=== PATIENT | female | born 1935 | race Caucasian/White ===

== ENCOUNTER 2016-09-10 20:16 | Inpatient (IN) | payer OTHER ==
--- NOTE | ~2016-09-10 | CN ---
Consultation Report [facility] [address] [place]. [address] NAME: LEONID SINCLAIR : 34 STATUS : ADM Estefany PAT#: [id number] AGE: 81 ADM/REG DATE : 09/11/16 MR#: [id number] REPORT SERV DATE: 09/11/16 DICTATED BY: QUETA SANCHEZ DATE: 09/11/16 REPORT STATUS : Draft TRANSCRIBED BY: MODL DATE: 09/11/16 GI CONSULTATION DATE OF CONSULTATION: 09/11/2016 REASON FOR CONSULTATION: Evaluation and management of melena, acute blood loss anemia. HISTORY OF PRESENT ILLNESS: Ms. Leonid Sinclair is a very pleasant, 81-year-old female patient, known to Dr. Ralph Reyes in the outpatient setting, who presents to [facility] on 09/11/2016 with a chief complaint of history of black stools, weakness, shortness of breath, evidence for acute blood loss anemia. The patient states that, she has not been feeling well roughly for the last month, weakness, fatigue, exertional shortness of breath. She states around two weeks ago, she had loose black stools that she attributed to magnesium intake. She states, her magnesium tablets are dark in color and stated that she thought that she over did it with them. She stopped her magnesium and her black stools resolved. She states however that, she had no desire to get up, complete her activities of daily living. She was sleeping most of the day. She had the exertional shortness of breath. She went to see her primary care physician, who obtained labs, which revealed a very low hemoglobin and she was prompted to come to the emergency room for further evaluation. She has a history of atrial fib, cardiomyopathy with a pacemaker being on a regimen of Xarelto. She states that her last dose of Xarelto was on 09/09/2016 in the evening hours. She has not seen any bright red blood per rectum. She has not had any nausea or vomiting. She has had a decreased appetite, but no dysphagia, odynophagia, reflux, or indigestion. No abdominal pain voiced. She was checked in the emergency room by Stool Hemoccult, which was reported as negative. Her hemoglobin on admission was 6.8. She was typed and crossed and given two units packed red blood cells, which improved to 8.2. I have seen the patient, discussed with her. We will take her for upper endoscopy today with Dr. Muñoz. Risks, benefits, alternatives, and complications were detailed for her to include, but not limited to risk of bleeding, perforation, infection, reaction to medication, as well as cardiac and pulmonary side effects. She had an EGD with Dr. Brooks, 07/01/2015, when the PEG tube was placed secondary to oropharyngeal dysphagia. She had a normal esophagus. She had some erythema in the gastric body, then he did biopsy with a normal duodenal bulb, second part of the duodenum. She has subsequently had her PEG tube removed and has been doing well, eating on her own since that point in time. When she had the EGD, the biopsies showed H pylori positivity, fundic mucosa with mild chronic active gastritis. It should be noted that the patient was treated in the outpatient setting for her H pylori. PAST MEDICAL HISTORY: Positive for atrial fibrillation, asthma, SVT, hypertension, AV node ablation, pacemaker placement, postoperative hypoxia with intubation, PEG tube secondary to oropharyngeal dysphagia, pleural effusions. FAMILY HISTORY: Noncontributory from a GI standpoint. Consultation Report [address] [address] NAME: LEONID SINCLAIR : 34 STATUS : ADM Estefany PAT#: [id number] AGE: 81 ADM/REG DATE : 09/11/16 MR#: [id number] REPORT SERV DATE: 09/11/16 DICTATED BY: QUETA SANCHEZ DATE: 09/11/16 REPORT STATUS : Draft TRANSCRIBED BY: NITO DATE: 09/11/16 SOCIAL HISTORY: She lives independently. Does not use tobacco or illicit drugs. Occasional EtOH. ALLERGIES: LISTED TO SOTALOL, FLECAINIDE, CARTIA, AND MULTAQ. HOME MEDICATIONS: Vitamin B, Flovent, Proventil, multivitamin, vitamin E, fish oil, Xarelto, muscle relaxer, and ropinirole. REVIEW OF SYSTEMS: A 10-point review of systems was obtained, pertinent positives addressed in the history of present illness. PERTINENT LABORATORY DATA: Sodium 141, potassium 4.2, BUN is 30, creatinine is 1.55. White count is 6.3, hemoglobin 8.2, hematocrit 25.4, hemoglobin in 06/2015 was 13.2, Hemoccult negative in the emergency room. PHYSICAL EXAMINATION: VITAL SIGNS: Temperature is 97.0, pulse 80, respirations 18, blood pressure 138/66. NEURO: Reveals an alert, female, resting in bed with no focal deficits. GENERAL: Cooperative with no apparent distress. She is awake. She is alert. She is oriented x3. HEAD, EARS, EYES, NOSE, AND THROAT: Anicteric. Pupils equal, round, reactive to light and accommodation. Normocephalic and atraumatic. NECK: No JVD. No palpable nodes. Supple. LUNGS: Decreased throughout with slight left upper lobe expiratory wheeze. Normal respiratory effort exhibited. Equal expansion. CARDIOVASCULAR SYSTEM: Regular rate and rhythm. ABDOMEN: Soft, nondistended, nontender with active bowel sounds. No organomegaly appreciated. No rebound or guarding elicited on exam. EXTREMITIES: She had bilateral lower extremity 1+ pitting edema. SKIN: Warm, dry, and intact. ASSESSMENT AND PLAN: 1. "melena", however Hemoccult negative in the ER. 2. Acute blood loss anemia/symptomatic. 3. History of atrial fibrillation, on Xarelto, last dose 09/09/2016. 4. Acute kidney injury. 5. History of cardiomyopathy, status post pacer. PLAN: 1. Continue n.p.o. status. 2. Continue Protonix drip. 3. EGD today with Dr. Muñoz. Other recommendations to follow endoscopy. Consultation Report [address] [address] NAME: LEONID SINCLAIR : 34 STATUS : ADM Estefany PAT#: [id number] AGE: 81 ADM/REG DATE : 09/11/16 MR#: [id number] REPORT SERV DATE: 09/11/16 DICTATED BY: QUETA SANCHEZ DATE: 09/11/16 REPORT STATUS : Draft TRANSCRIBED BY: NITO DATE: 09/11/16 BROOKS/NITO IDNAH Riley / [id number] CC: MD Lui Rolle M.D.
--- NOTE | ~2016-09-10 | EGD ---
EGD REPORT [facility] [address] [address] NAME: LEONID SINCLAIR : 34 STATUS : ADM Estefany PAT#: [id number] AGE: 81 ADM/REG DATE : 09/11/16 MR#: [id number] REPORT SERV DATE: 09/11/16 DICTATED BY: AUGUSTO FOX DATE: 09/11/16 REPORT STATUS : Draft TRANSCRIBED BY: [facility] DATE: 09/11/16 Endoscopy Center Patient Name: Leonid Sinclair Date of : 1935 Attending MD: AUGUSTO FOX MD Procedure Date No Time: 09/11/2016 Procedure: Upper GI endoscopy Indications: Iron deficiency anemia secondary to chronic blood loss??? Question history of melena although heme negative in ED; On Xarelto chronically for Afib Referring MD: ALEXANDRO ODONNELL Medicines: Monitored Anesthesia Care Complications: No immediate complications. Estimated blood loss: Minimal. Procedure: Pre-Anesthesia Assessment: - ASA Grade Assessment: III - A patient with severe systemic disease. After obtaining informed consent, the endoscope was passed under direct vision. Throughout the procedure, the patient's blood pressure, pulse, and oxygen saturations were monitored continuously. The GIF [id number] was introduced through the mouth, and advanced to the second part of duodenum. The upper GI endoscopy was accomplished without difficulty. The patient tolerated the procedure well. Findings: The examined esophagus was normal. 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 Fulguration to ablate the lesion to prevent bleeding by argon plasma at 1 liter/minute and 30 flaherty was successful. Estimated blood loss was minimal. The examined duodenum was normal. The cardia and gastric fundus were normal on retroflexion. The exam was otherwise without abnormality. Impression: - Gastric antral vascular ectasia without bleeding. Treated by fulguration. - The examination was otherwise normal. Recommendation: - Full liquid diet today. - Use Protonix (pantoprazole) 40 mg PO BID for 8 weeks. - Resume Xarelto (rivaroxaban) at prior dose in 3 days. - Return to GI clinic in 4 weeks. Consider retreatment if hemoglobin not improving +/- colonoscopy (patient has EGD REPORT [address] [address] NAME: LEONID SINCLAIR : 34 STATUS : ADM Estefany PAT#: [id number] AGE: 81 ADM/REG DATE : 09/11/16 MR#: [id number] REPORT SERV DATE: 09/11/16 DICTATED BY: AUGUSTO FOX DATE: 09/11/16 REPORT STATUS : Draft TRANSCRIBED BY: [facility] DATE: 09/11/16 never had a colonoscopy per ) Procedure Code(s): --- Professional --- 65107, Esophagogastroduodenoscopy, flexible, transoral; with control of bleeding, any method Diagnosis Code(s): --- Professional --- K31.819, Angiodysplasia of stomach and duodenum without bleeding D50.0, Iron deficiency anemia secondary to blood loss (chronic) K92.1, Melena CPT copyright 2013 [employer] [place] [employer]. All rights reserved. The codes documented in this report are preliminary and upon senior engineer review may be revised to meet current compliance requirements. Augusto Fox MD AUGUSTO FOX MD 09/11/2016 6:09 PM This report has been signed electronically. Number of Addenda: 0 Note Initiated On: 09/11/2016 5:12 PM Scope Withdrawal Time 0 hours 0 minutes 0 seconds [address] [id number]
--- NOTE | ~2016-09-10 | HP ---
History And Physical [place] [address] [facility] [place]. [address] NAME: LEONID SINCLAIR : 34 STATUS : ADM Estefany PAT#: [id number] AGE: 81 ADM/REG DATE : 09/11/16 MR#: [id number] REPORT SERV DATE: 09/11/16 DICTATED BY: JASON HERRERA DATE: 09/11/16 REPORT STATUS : Draft TRANSCRIBED BY: MODL DATE: 09/11/16 DATE OF ADMISSION: 09/11/2016 CHIEF COMPLAINT: Black tarry stools, weakness, and shortness of breath. HISTORY OF PRESENT ILLNESS: This is an 81-year-old female, who has a history of atrial fibrillation, on Xarelto, has cardiomyopathy with a pacemaker and also has hypertension, who presents to the emergency room at [facility] with the above-mentioned complaint. History is obtained from the patient and reviewing data available on the [employer] system. According to available data, she was in her usual state of health until about a month or so ago when she started feeling poorly, having weakness in her legs, and shortness of breath. Two weeks ago, she had diarrhea, at least she thought so, when she had black tarry stools. She also noted it had a bad odor as well. This resolved and she has been taking magnesium tablets, which are black in color and she thought that is why her stools were color black. Her symptoms progressively worsened until she went to her physician yesterday and had blood work done, which showed low hemoglobin and hematocrit levels. She was subsequently asked to go to the emergency room right away. In the emergency room, initial workup revealed symptomatic anemia and acute kidney injury. Stool Hemoccult x1 was negative in the emergency room. She was typed, crossed, and transfused 1 unit of packed red cells in the ER and Hospitalist Service is asked to admit her for further evaluation and treatment. At the time of my evaluation, she denied any chest pain, palpitations, or orthopnea. She had no cough, hemoptysis, night sweats, or weight loss. She denied any recent falls or loss of consciousness. No history of fevers, chills, nausea, vomiting, diarrhea. No history of hematuria. No other history of recent travel or exposures other than those mentioned above. PAST MEDICAL HISTORY: Significant for history of essential hypertension, atrial fibrillation status post ablation and on Xarelto, history of cardiomyopathy with a pacemaker placed in 05/2015. She has a history of restless legs syndrome and SVT as well. A JULIENNE done in 2016 showed small kmkhj-bs-yife shunt with normal left ventricular systolic function. SOCIAL HISTORY: She does not smoke, drink, or use recreational drugs. FAMILY HISTORY: Noncontributory. MEDICATIONS: Her medications at home were reviewed by me in the chart today and reordered by me. REVIEW OF SYSTEMS: As in history of present illness. All other systems were reviewed in detail and are quite unremarkable. History And Physical [address] [address] NAME: LEONID SINCLAIR : 34 STATUS : ADM Estefany PAT#: [id number] AGE: 81 ADM/REG DATE : 09/11/16 MR#: [id number] REPORT SERV DATE: 09/11/16 DICTATED BY: JASON HERRERA DATE: 09/11/16 REPORT STATUS : Draft TRANSCRIBED BY: NITO DATE: 09/11/16 PHYSICAL EXAMINATION: GENERAL: This is a pleasant 81-year-old, not in any acute distress. HEENT: Her head is atraumatic, normocephalic. She is alert, awake, and oriented to time, place, and person. Pupils are equal, reacting to light and accommodating. External ocular muscles are intact. Membranes are moist and pink. Sclerae are nonicteric. NECK: Supple with no jugular venous distention, lymphadenopathy, or thyromegaly. LUNGS: Clear to auscultation with no wheezes, rubs, or crackles. HEART: Heart sounds were regular with no murmurs, rubs, or gallops. ABDOMEN: Soft, nontender. Bowel sounds are present. EXTREMITIES: Showed bilateral pitting lower extremity edema, but there is no cyanosis or clubbing. NEURO: Grossly intact. No focal sensory or motor deficits. Higher functions appeared intact. Gait was not examined at this time. VITAL SIGNS: Her vital signs today showed a temperature of 98.5, pulse 84, respirations 18 a minute, blood pressure was 144/63, oxygen saturations were 100% breathing 2 L of oxygen via nasal cannula. LABORATORY DATA: Reviewed on the [employer] system showed a sodium of 140, potassium 4.2, chloride 104, and CO2 of 27. BUN was 33 with a creatinine of 1.59 and blood glucose was 98. Total bilirubin was 0.8, alkaline phosphatase was 137, ALT and AST were within normal limits. CBC showed a white blood cell count of 6200, hemoglobin was 7, hematocrit was 22.5. This was 6.8 and 21.8 prior to arrival here at her doctor's office. Her MCV was 78.7 and platelet count was 243,000. Her prothrombin time today was 16.1 with an INR of 1.3. Urinalysis was not performed. Film of the chest x-ray that was ordered in the ER was reviewed by me on the PACS today and interpreted by me. Per my interpretation, there is normal bony architecture with no cardiomegaly. Lung workman were clear with no lobar consolidations or pleural effusions. There is a left-sided pacemaker seen. A 12-lead EKG done in the emergency room was reviewed and interpreted by me. There is ventricular paced rhythm. IMPRESSION: 1. Black tarry stools with anemia concerning for melena. 2. Symptomatic anemia secondary to blood loss requiring blood transfusion. 3. Acute kidney injury. 4. Essential hypertension. 5. Atrial fibrillation, on Xarelto. 6. Cardiomyopathy with pacemaker. 7. History of supraventricular tachycardia. 8. Restless legs syndrome. PLAN: We will admit Ms. Sinclair to the Hospitalist Service with telemetry for a 24-hour observation. We will check stool Hemoccults x3 and hold Xarelto today. She has been typed and crossed, and received 1 unit of packed red cells in the emergency room. We will follow serial hemoglobin and hematocrit levels post transfusion. We will also get Gastroenterology Service with Dr. Ralph Reyes, who had seen her in the past to see her. Meanwhile, we will start her on a Protonix infusion. We will start her on IV fluids as well. Follow chemistry History And Physical [address] [address] NAME: LEONID SINCLAIR : 34 STATUS : ADM Estefany PAT#: [id number] AGE: 81 ADM/REG DATE : 09/11/16 MR#: [id number] REPORT SERV DATE: 09/11/16 DICTATED BY: JASON HERRERA DATE: 09/11/16 REPORT STATUS : Draft TRANSCRIBED BY: NITO DATE: 09/11/16 and electrolytes in the morning, and replete as needed. Her atrial fibrillation is rate controlled. She is on a paced rhythm at this point. We will monitor this closely with herself. Xarelto will be on hold. We will place her on SCDs for DVT prophylaxis while here. I have discussed the above plans with the patient. Her questions were answered and she is agreeable to the above recommendations. Please see today's orders for details. Hospitalist Service will be following her during her stay here. /NITO Jason Herrera M.D. / [id number] CC: MD Lui Rolle M.D.
--- NOTE | ~2016-09-10 | DS ---
Discharge Summary [place] [address] [facility] [place]. [address] NAME: LEONID UNDERWOOD : 34 STATUS : DIS Estefany PAT#: [id number] AGE: 81 ADM/REG DATE : 09/11/16 MR#: [id number] REPORT SERV DATE: 09/12/16 DICTATED BY: DATE: REPORT STATUS : Draft TRANSCRIBED BY: MODL DATE: 09/12/16 ADMISSION DATE: 09/11/2016 DISCHARGE DATE: 09/12/2016 DISCHARGE DIAGNOSES: 1. Symptomatic anemia secondary to acute blood loss requiring blood transfusion. 2. Melena. 3. Acute kidney injury secondary to acute blood loss. 4. Essential hypertension. 5. Atrial fibrillation with Xarelto therapy. 6. Cardiomyopathy with pacemaker. 7. History of supraventricular tachycardia. 8. Restless legs syndrome. CONSULTATIONS: GI, Dr. Muñoz. PROCEDURES AND IMAGIN09/10/2016, portable chest x-ray showed no acute process. 09/11/2016, upper GI endoscopy by Dr. Muñoz showed moderate gastric antral vascular ectasia without bleeding in the gastric antrum. Ablation was done to prevent bleeding. HOSPITAL COURSE: This is a pleasant 81-year-old female who presented to the emergency room with history of black tarry stools for several weeks accompanied by weakness and shortness of breath. Please see admission H and P by Dr. Jason Carty on 09/11/2016. When the patient was admitted, her hemoglobin was 7.0 and hematocrit was 22.5. During her stay, she has received two units of packed red cells and has had some relief of her symptoms of breathlessness and dizziness. The patient had an EGD yesterday and it was recommended by Dr. Muñoz to hold her Xarelto for three days and to use Protonix twice daily for two months. The patient will be following up with [facility]. The patient had a small episode of dizziness today, and her orthostatics were lying down, 99/54; sitting up, 99/55; and standing up, 128/61. The patient was unable to tolerate orthostatics last evening. The patient continues to have large amount of ectopy with her ventricular pacemaker, but has sustained a rate less than 100. The patient has had no bowel movement since admission. The patient's echo in 09/2015 showed mild to moderate mitral regurgitation and moderate to severe tricuspid regurgitation. Due to her extensive heart history, it was decided to admit the patient to inpatient for closer monitoring. The patient has tolerated her procedure well and no aggressive site of bleeding was noted. PHYSICAL EXAMINATION: VITAL SIGNS: Blood pressure 156/87, O2 saturation 92% on room air, respirations are 20, temperature is 98.0, heart rate is 86. HEENT: Head is atraumatic, normocephalic. Pupils are equal, round, reactive to light and accommodation. Sclerae are nonicteric. NECK: Supple. No obvious lymphadenopathy or thyromegaly. Neck veins are flat. LUNGS: Clear to auscultation with normal respiratory effort. CARDIOVASCULAR: The patient is having a paced beat with frequent PVCs. ABDOMEN: Soft and nontender with active bowel sounds in all four quadrants. No palpable Discharge Summary [address] [address] NAME: LEONID UNDERWOOD : 34 STATUS : DIS Estefany PAT#: [id number] AGE: 81 ADM/REG DATE : 09/11/16 MR#: [id number] REPORT SERV DATE: 09/12/16 DICTATED BY: DATE: REPORT STATUS : Draft TRANSCRIBED BY: MODL DATE: 09/12/16 organomegaly. EXTREMITIES: Moves all extremities x4. The patient has mild nonpitting edema in bilateral ankles. Has normal distal pulses radially and posterior tibially and dorsalis pedis. MUSCULOSKELETAL: The patient is ambulatory without assistance. No difficulties with balance. NEURO/PSYCH: The patient is alert and oriented x3, affect is bright. DISCHARGE DIET: GI soft diet. DISCHARGE MEDICATIONS: Protonix 40 mg twice daily before meals; Requip 0.5 mg at bedtime; Xarelto 20 mg daily, starting on 09/15; lisinopril 5 mg daily, hold for systolic blood pressure less than 110; Flovent two puffs twice daily; vitamin B one tablet daily; multivitamin one tablet daily; temazepam 15 mg at bedtime as needed for sleep. ALLERGIES: THE PATIENT IS ALLERGIC TO SOTALOL, FLECAINIDE, AND HAD ADVERSE REACTION TO DILTIAZEM AND MULTAQ. DISCHARGE INSTRUCTIONS: The patient is to follow up with her PCP for blood work in 7 to 10 days. The patient is to follow up with [facility] in four to six weeks. The patient is to take Protonix 40 mg twice daily for two months. Should the patient develop any more dizziness, black tarry stools, or shortness of breath, she is to follow up with her PCP, [facility], or to follow up at the emergency department. Approximately 30 minutes have been spent in discharge care of this patient including summarization of the discharge. SLC/MODL Argenis Jorgensen NP / [id number] CC: MD Lui Rolle M.D. William M. Cooney, MD
[2016-09-10 18:00] LABS: CHLORIDE, SERUM 104 MMOL/L (96-112); CO2 (CARBON DIOXIDE) 25 MMOL/L (24-34); SGOT(AST) 27 U/L (5-40); SGPT(ALT) 30 U/L (5-65); SODIUM, SERUM 139 MMOL/L (135-148); TOTAL BILIRUBIN 0.8 MG/DL (0-1.2); TOTAL PROTEIN 6.9 G/DL (6.0-8.5)
[2016-09-10 18:08] LABS: A/G RATIO 1.5 (0.7-1.9); ALBUMIN 4.1 G/DL (3.5-5.0); ALKALINE PHOSPHATASE 118 U/L (45-117); BUN (BLOOD UREA NITROGEN) 31 MG/DL (6-23); CREATININE 1.22 MG/DL (0.55-1.02); GFR AFRICAN AMERICAN 48 ML/MIN (>=60); GFR NON AFRICAN AMERICAN 41 ML/MIN (>=60); GLOBULIN 2.8 G/DL (2.5-4.1); GLUCOSE, SERUM 101 MG/DL (60-99)
[2016-09-10 18:24] LABS: MEAN CORPUS HGB CONC 31.2 g/dL (32.0-36.0); MEAN PLATELET VOLUME 11.3 fL (9.2-13.0); RBC DISTRIBUTION WIDTH 15.6 % (12.0-16.0); WHITE BLOOD CELLS 5.7 10/3/uL (4.5-10.5)
[2016-09-10 18:25] LABS: HEMATOCRIT 21.8 % (36.0-48.0); HEMOGLOBIN 6.8 g/dL (12.0-16.0); MEAN CORPUSCULAR HEMOGLOB 24.9 pg (26.0-34.0); MEAN CORPUSCULAR VOLUME 79.9 fL (80-100); PLATELET COUNT 249 10/3/uL (150-400); RED CELL COUNT 2.73 10/6/uL (4.0-5.6)
[~2016-09-10 20:16] MED LIST: BETAPACE80 PO; CARD30 PO; CENTRUM TAB1 TAB PO; CHLORPHEN4 MG PO; DRONED400 PO; FLOVENT110 INH; KLOR-CON 1010 MEQ PO; L20 PO; NIACIN PO; PRIN5 PO; TYLENOL ARTH650 MG PO; VITAMIN B PO; VITE PO; XARELTO20 MG PO; ZINC PO
[2016-09-10 20:53] LABS: BASOPHILS 0.6 %; BASOPHILS ABSOLUTE 0.04 10/3/uL (0.0-0.16); EOSINOPHILS ABSOLUTE 0.06 10/3/uL (0.0-0.53); ER CBC TAT 0 Hrs 07 Mins; HEMATOCRIT 22.5 % (36.0-48.0); IMMATURE GRANULOCYTES 0.2 %; IMMATURE GRANULOCYTES ABSOLUTE 0.01 10/3/uL (0.0-0.11); LYMPHOCYTES 34.4 %; LYMPHOCYTES ABSOLUTE 2.12 10/3/uL (0.67-4.30); MEAN CORPUS HGB CONC 31.1 g/dL (32.0-36.0); MEAN CORPUSCULAR HEMOGLOB 24.5 pg (26.0-34.0); MEAN CORPUSCULAR VOLUME 78.7 fL (80-100); MEAN PLATELET VOLUME 9.3 fL (9.2-13.0); MONOCYTES 12.2 %; MONOCYTES ABSOLUTE 0.75 10/3/uL (0.21-1.20); NEUTROPHILS 51.6 %; NEUTROPHILS ABSOLUTE 3.18 10/3/uL (2.02-8.40); PLATELET COUNT 243 10/3/uL (150-400); RBC DISTRIBUTION WIDTH 15.2 % (12.0-16.0); RED CELL COUNT 2.86 10/6/uL (4.0-5.6); WHITE BLOOD CELLS 6.2 10/3/uL (4.5-10.5)
[2016-09-10 20:54] LABS: MANUAL DIFF NO %
[2016-09-10 21:01] LABS: INTERNATIONAL NORMAL RATI 1.3 UNITS (-); PARTIAL THROMBO TIME 32.5 SEC (22.5-37.2)
[2016-09-10 21:02] LABS: PROTIME (NOT ORD) 16.1 SEC (12.0-14.5)
[2016-09-10 21:06] LABS: ALBUMIN 3.9 G/DL (3.5-5.0); ALKALINE PHOSPHATASE 137 U/L (45-117); BUN (BLOOD UREA NITROGEN) 33 MG/DL (6-23); CALCIUM, SERUM 8.2 MG/DL (8.5-10.4); CHLORIDE, SERUM 104 MMOL/L (96-112); CO2 (CARBON DIOXIDE) 27 MMOL/L (24-34); CREATININE 1.59 MG/DL (0.55-1.02); GFR AFRICAN AMERICAN 35 ML/MIN (>=60); GFR NON AFRICAN AMERICAN 30 ML/MIN (>=60); GLOBULIN 3.8 G/DL (2.5-4.1); GLUCOSE, SERUM 98 MG/DL (60-99); POTASSIUM, SERUM 4.2 MMOL/L (3.5-5.3); SGOT(AST) 23 U/L (5-40); SGPT(ALT) 29 U/L (5-65); SODIUM, SERUM 140 MMOL/L (135-148); TOTAL BILIRUBIN 0.7 MG/DL (0-1.2); TOTAL PROTEIN 7.7 G/DL (6.0-8.5)
[2016-09-10] MEDS ORDERED: PRIN5 PO (22:26)
[2016-09-10] MEDS ORDERED: FLOVENT110 INH (22:27)
[2016-09-10] MEDS ORDERED: VITE PO (22:28)
[2016-09-10] MEDS ORDERED: FISH-EPA1000 MG PO (22:28)
[2016-09-10] MEDS ORDERED: VITAMIN B PO (22:28)
[2016-09-10] MEDS ORDERED: MULTIVIT/MIN PO (22:28)
[2016-09-10] MEDS ORDERED: XARELTO20 MG PO (22:31)
[2016-09-11] MEDS ORDERED: REST15 PO (00:40)
[2016-09-11] MEDS ORDERED: REQUIP5 PO (00:41)
[2016-09-11 06:58] LABS: BASOPHILS 0.8 %; BASOPHILS ABSOLUTE 0.05 10/3/uL (0.0-0.16); EOSINOPHILS 0.3 %; EOSINOPHILS ABSOLUTE 0.02 10/3/uL (0.0-0.53); HEMOGLOBIN 8.2 g/dL (12.0-16.0); LYMPHOCYTES 22.3 %; MEAN CORPUS HGB CONC 32.3 g/dL (32.0-36.0); MEAN CORPUSCULAR HEMOGLOB 26.1 pg (26.0-34.0); MEAN CORPUSCULAR VOLUME 80.9 fL (80-100); MEAN PLATELET VOLUME 10.4 fL (9.2-13.0); MONOCYTES 14.2 %; MONOCYTES ABSOLUTE 0.89 10/3/uL (0.21-1.20); NEUTROPHILS 62.4 %; NEUTROPHILS ABSOLUTE 3.92 10/3/uL (2.02-8.40); PLATELET COUNT 208 10/3/uL (150-400); RBC DISTRIBUTION WIDTH 16.2 % (12.0-16.0); RED CELL COUNT 3.14 10/6/uL (4.0-5.6); WHITE BLOOD CELLS 6.3 10/3/uL (4.5-10.5)
[2016-09-11 07:00] LABS: HEMATOCRIT 25.4 % (36.0-48.0); MANUAL DIFF NO %
[2016-09-11 07:04] LABS: BUN (BLOOD UREA NITROGEN) 30 MG/DL (6-23); CHLORIDE, SERUM 107 MMOL/L (96-112); CO2 (CARBON DIOXIDE) 25 MMOL/L (24-34); CREATININE 1.55 MG/DL (0.55-1.02); GFR AFRICAN AMERICAN 36 ML/MIN (>=60); GFR NON AFRICAN AMERICAN 31 ML/MIN (>=60); GLUCOSE, SERUM 98 MG/DL (60-99); PHOSPHORUS, SERUM 3.3 MG/DL (2.5-4.5); POTASSIUM, SERUM 4.2 MMOL/L (3.5-5.3); SODIUM, SERUM 141 MMOL/L (135-148)
[2016-09-11 11:35] LABS: HEMATOCRIT 23.7 % (36.0-48.0); HEMOGLOBIN 7.5 g/dL (12.0-16.0)
[2016-09-11 20:10] LABS: HEMATOCRIT 31.6 % (36.0-48.0); HEMOGLOBIN 10.1 g/dL (12.0-16.0)
[2016-09-12 05:37] LABS: BASOPHILS 0.2 %; BASOPHILS ABSOLUTE 0.02 10/3/uL (0.0-0.16); EOSINOPHILS 0.1 %; EOSINOPHILS ABSOLUTE 0.01 10/3/uL (0.0-0.53); HEMOGLOBIN 9.7 g/dL (12.0-16.0); IMMATURE GRANULOCYTES 0.2 %; IMMATURE GRANULOCYTES ABSOLUTE 0.02 10/3/uL (0.0-0.11); LYMPHOCYTES 6.7 %; LYMPHOCYTES ABSOLUTE 0.66 10/3/uL (0.67-4.30); MEAN CORPUS HGB CONC 32.3 g/dL (32.0-36.0); MEAN CORPUSCULAR HEMOGLOB 26.3 pg (26.0-34.0); MEAN CORPUSCULAR VOLUME 81.3 fL (80-100); MEAN PLATELET VOLUME 10.7 fL (9.2-13.0); MONOCYTES 11.8 %; MONOCYTES ABSOLUTE 1.17 10/3/uL (0.21-1.20); NEUTROPHILS ABSOLUTE 8.03 10/3/uL (2.02-8.40); PLATELET COUNT 199 10/3/uL (150-400); RBC DISTRIBUTION WIDTH 15.7 % (12.0-16.0); RED CELL COUNT 3.69 10/6/uL (4.0-5.6)
[2016-09-12 05:38] LABS: MANUAL DIFF NO %; WHITE BLOOD CELLS 9.9 10/3/uL (4.5-10.5)
[2016-09-12 05:50] LABS: BUN (BLOOD UREA NITROGEN) 28 MG/DL (6-23); CHLORIDE, SERUM 108 MMOL/L (96-112); CO2 (CARBON DIOXIDE) 25 MMOL/L (24-34); CREATININE 1.41 MG/DL (0.55-1.02); GFR AFRICAN AMERICAN 40 ML/MIN (>=60); GFR NON AFRICAN AMERICAN 35 ML/MIN (>=60); PHOSPHORUS, SERUM 3.1 MG/DL (2.5-4.5); SODIUM, SERUM 142 MMOL/L (135-148)
[2016-09-12 05:53] LABS: GLUCOSE, SERUM 124 MG/DL (60-99)
[2016-09-12 10:23] LABS: HEMATOCRIT 29.5 % (36.0-48.0); HEMOGLOBIN 9.4 g/dL (12.0-16.0)
[2016-09-12] MEDS ORDERED: PROTONIX PO (15:56)
== END 2016-09-12 17:00 | disposition home or self-care (01) | DRG 378 ==
LOC: ER 20:16 → 7NO 09-11 00:24
PROVIDERS: Internal Medicine Gastroenterology; Internal Medicine Pulmonary Disease; Nurse Practitioner; Nurse Practitioner Family; Specialist
PROC: 0DJ08ZZ Inspection of Upper Intestinal Tract, Via Natural or Artificial Opening Endoscopic (ICD-10-PCS; principal; 2016-09-11 14:53)
DX: K92.1 Melena (principal); D62 Acute posthemorrhagic anemia; N17.9 Acute kidney failure, unspecified; I48.91 Unspecified atrial fibrillation; I10 Essential (primary) hypertension; G25.81 Restless legs syndrome; K31.819 Angiodysplasia of stomach and duodenum without bleeding; Z79.01 Long term (current) use of anticoagulants; Z95.0 Presence of cardiac pacemaker
CPT/HCPCS: 36415; 71010; 80048; 80053; 83735; 84100; 85014; 85018; 85025; 85027; 85610; 85730; 86850; 86900; 86901; 86920; 93005; 96374; 99285; A9270-GY; C9113; J1940; J2405; P9016

== ENCOUNTER 2016-10-27 18:02 | Inpatient (IN) | payer OTHER ==
--- NOTE | ~2016-10-27 | EGD ---
EGD REPORT [facility] [address] [address] NAME: LEONID SINCLAIR : 34 STATUS : ADM IN PAT#: [id number] AGE: 81 ADM/REG DATE : 10/27/16 MR#: [id number] REPORT SERV DATE: 10/29/16 DICTATED BY: DATE: REPORT STATUS : Draft TRANSCRIBED BY: [employer] DATE: 10/29/16 Endoscopy Center Patient Name: Leonid Sinclair Date of : 1935 Attending MD: AUGUSTO FOX MD Procedure Date No Time: 10/29/2016 Procedure: Upper GI endoscopy Indications: Iron deficiency anemia secondary to chronic blood loss Referring MD: ALEXANDRO ODONNELL Medicines: Monitored Anesthesia Care Complications: No immediate complications. Estimated blood loss: Minimal. Procedure: Pre-Anesthesia Assessment: - ASA Grade Assessment: III - A patient with severe systemic disease. After obtaining informed consent, the endoscope was passed under direct vision. Throughout the procedure, the patient's blood pressure, pulse, and oxygen saturations were monitored continuously. The GIF [id number] was introduced through the mouth, and advanced to the third part of duodenum. The upper GI endoscopy was accomplished without difficulty. The patient tolerated the procedure well. Findings: The examined esophagus was normal. Mild gastric antral vascular ectasia without bleeding was present in the gastric antrum. Fulguration to ablate the lesion to prevent bleeding by argon plasma at 1 liter/minute and 30 flaherty was successful. Estimated blood loss was minimal. The examined duodenum was normal. The exam was otherwise without abnormality. Impression: - Gastric antral vascular ectasia without bleeding. Treated by fulguration. - The examination was otherwise normal. Recommendation: - Use Protonix (pantoprazole) 40 mg PO BID for 4 weeks. - Perform a colonoscopy today. Procedure Code(s): --- Professional --- 13271, Esophagogastroduodenoscopy, flexible, transoral; with control of bleeding, any method Diagnosis Code(s): --- Professional --- EGD REPORT [place] [address] 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 All rights reserved. The codes documented in this report are preliminary and upon branch rental manager review may be revised to meet current compliance requirements. Augusto Fox MD AUGUSTO FOX MD 10/29/2016 8:14 AM This report has been signed electronically. Number of Addenda: 0 Note Initiated On: 10/29/2016 7:17 AM Scope Withdrawal Time 0 hours 0 minutes 0 seconds [facility] [address] [id number]
--- NOTE | ~2016-10-27 | DS ---
Discharge Summary [facility] [address] [place]. [address] NAME: LEONID UNDERWOOD : 34 STATUS : DIS IN PAT#: [id number] AGE: 81 ADM/REG DATE : 10/27/16 MR#: [id number] REPORT SERV DATE: 10/31/16 DICTATED BY: MARLON HOYOS DATE: 10/30/16 REPORT STATUS : Draft TRANSCRIBED BY: MODL DATE: 10/30/16 ADMISSION DATE: 10/27/2016 DISCHARGE DATE: 10/30/2016 DISCHARGE DIAGNOSES: Include: 1. Acute blood loss anemia. 2. Gastrointestinal bleed with gastric vascular ectasia. 3. Chronic systolic heart failure. 4. Chronic lymphedema bilaterally. 5. Chronic atrial fibrillation. 6. Obstructive sleep apnea, on CPAP therapy. 7. History of asthma. 8. Headache, resolved. 9. Anxiety, stable. DISCHARGE MEDICINES: Lisinopril 2.5 mg daily; Singulair 10 mg daily; Protonix 40 mg twice a day; Requip 0.5 mg at bedtime; Lasix 20 mg daily; Flovent 110 mcg two puffs inhaled twice a day; Xarelto 20 mg daily, resume 11/04/2016; Restoril 15 mg at bedtime p.r.n. for sleeplessness; Tylenol 650 mg every six hours p.r.n.; Flonase nasal spray p.r.n. for allergies; and potassium tablet daily. HISTORY OF PRESENT ILLNESS: This is a very pleasant 81-year-old female, presented with headache, chest pain, and evidence for acute blood loss anemia. Please see initial H and P of Dr. Pablito Antonio. This patient is admitted to the Hospitalist Service for further evaluation and treatment. CONSULTANTS DURING THIS ADMISSION: Included GI, Kyle Echevarria, nurse practitioner and Dr. Muñoz, Cardiology and Dr. Andrew. PROCEDURES AND IMAGING: During this admission included an initial CTA of the chest that showed no suggestion of pulmonary embolus, mild atelectasis, but otherwise unremarkable and no other acute findings, no dissection, and no aneurysm. A vascular ultrasound of the left arm showing some wave-forms diminished in the second and third digit of the right hand, otherwise essentially within normal limits and upper GI endoscopy showing a gastric antral vascular ectasias that was treated with fulguration. A colonoscopy showing diverticulosis in the sigmoid colon and polyps within ascending, transverse, and rectosigmoid colon that were resected. CONTINUATION IN HOSPITAL COURSE: The patient was seen by Gastrointestinal Team, who recommended pursuing the above-described EGD and colonoscopy. She was seen by Cardiology given her initial complaint of chest pain. Troponins, however, were negative. Chest pain resolved quite rapidly after the patient was transfused with packed red blood cells and her H and H climbed from 8 and 26.5 to 9.2 and 30.5. She symptomatically was much better. No further cardiac workup was done. Her Xarelto was placed on hold in anticipation of the EGD and colonoscopy, which was performed on 10/29/2016 and she recovered well from that. Her H and H have been stable. She has been feeling much better and asymptomatic. She will resume Discharge Summary [address] [address] NAME: LEONID UNDERWOOD : 34 STATUS : DIS IN PAT#: [id number] AGE: 81 ADM/REG DATE : 10/27/16 MR#: [id number] REPORT SERV DATE: 10/31/16 DICTATED BY: MARLON HOYOS DATE: 10/30/16 REPORT STATUS : Draft TRANSCRIBED BY: NITO DATE: 10/30/16 a daily dose of Lasix at discharge after discussion with Dr. Abraham, her lpn or medical assistant who sees her in the office. She will resume her Xarelto after five days, on 11/04/2016 and we will follow up with GI in four weeks post discharge. She is in agreement with this plan going forward. Questions were answered at bedside. Please note, greater than 30 minutes was spent on this discharge for medication teaching, followup planning, further disposition. DICTATED BY: Marlon Hoyos NP CSC/NITO Marlon Hoyos NP / [id number] CC: Toro Lutz M.D.
--- NOTE | ~2016-10-27 | EGD ---
EGD REPORT [facility] [address] [address] NAME: LEONID SINCLAIR : 34 STATUS : ADM IN PAT#: [id number] AGE: 81 ADM/REG DATE : 10/27/16 MR#: [id number] REPORT SERV DATE: 10/29/16 DICTATED BY: AUGUSTO FOX DATE: 10/29/16 REPORT STATUS : Draft TRANSCRIBED BY: [facility] DATE: 10/29/16 Endoscopy Center Patient Name: Leonid Sinclair Date of : 1935 Attending MD: AUGUSTO FOX MD Procedure Date No Time: 10/29/2016 Procedure: Colonoscopy Indications: This is the patient's first colonoscopy, Melena, Iron deficiency anemia secondary to chronic blood loss Referring MD: ALEXANDRO ODONNELL Medicines: Monitored Anesthesia Care Complications: No immediate complications. Estimated blood loss: Minimal. Procedure: Pre-Anesthesia Assessment: - ASA Grade Assessment: III - A patient with severe systemic disease. After I obtained informed consent, the scope was passed under direct vision. Throughout the procedure, the patient's blood pressure, pulse, and oxygen saturations were monitored continuously. The [id number] was introduced through the anus and advanced to the cecum, identified by appendiceal orifice and ileocecal valve. The colonoscopy was performed without difficulty. The patient tolerated the procedure well. The quality of the bowel preparation was excellent. Findings: The perianal and digital rectal examinations were normal. Pertinent negatives include no palpable rectal lesions. Multiple medium-mouthed diverticula were found in the sigmoid colon. A sessile polyp was found in the ascending colon. The polyp was 4 mm in size. The polyp was removed with a cold biopsy forceps. Resection and retrieval were complete. Estimated blood loss was minimal. A sessile polyp was found in the transverse colon. The polyp was 5 mm in size. The polyp was removed with a cold biopsy forceps. Resection and retrieval were complete. Estimated blood loss was minimal. Two semi-sessile polyps were found in the transverse colon. The polyps were 6 to 7 mm in size. These polyps were removed with a cold snare. Resection and retrieval were complete. Estimated blood loss was minimal. A sessile polyp was found in the recto-sigmoid colon. The polyp was 5 mm in size. The polyp was removed with a cold biopsy forceps. Resection and retrieval were complete. Estimated blood loss was minimal. The exam was otherwise without abnormality on direct and retroflexion views. EGD REPORT [address] [place]. [address] NAME: LEONID SINCLAIR : 34 STATUS : ADM IN [facility]#: [id number] AGE: 81 ADM/REG DATE : 10/27/16 MR#: [id number] REPORT SERV DATE: 10/29/16 DICTATED BY: AUGUSTO FOX DATE: 10/29/16 REPORT STATUS : Draft TRANSCRIBED BY: [employer] DATE: 10/29/16 Impression: - Diverticulosis in the sigmoid colon. - One 4 mm polyp in the ascending colon. Resected and retrieved. - One 5 mm polyp in the transverse colon. Resected and retrieved. - Two 6 to 7 mm polyps in the transverse colon. Resected and retrieved. - One 5 mm polyp at the recto-sigmoid colon. Resected and retrieved. - The examination was otherwise normal on direct and retroflexion views. Recommendation: - [facility] patient to [facility] for [facility] care. - Await pathology results. - Clear liquid diet today. - Check hemoglobin q 12 hours until stable. Procedure Code(s): --- Professional --- 01433, Colonoscopy, flexible, proximal to splenic flexure; with removal of tumor(s), polyp(s), or other lesion(s) by snare technique 15019, 59, Colonoscopy, flexible, proximal to splenic flexure; with biopsy, single or multiple Diagnosis Code(s): --- Professional --- K57.30, Diverticulosis of large intestine without perforation or abscess without bleeding D12.7, Benign neoplasm of rectosigmoid junction D12.3, Benign neoplasm of transverse colon D12.2, Benign neoplasm of ascending colon K92.1, Melena D50.0, Iron deficiency anemia secondary to blood loss (chronic) CPT copyright 2013 [employer]. All rights reserved. The codes documented in this report are preliminary and upon medical record coder review may be revised to meet current compliance requirements. Augusto Fox MD AUGUSTO FOX MD 10/29/2016 8:18 AM This report has been signed electronically. Number of Addenda: 0 EGD REPORT [facility] [address] [place]. [address] NAME: LEONID SINCLAIR : 34 STATUS : ADM IN [facility]#: [id number] AGE: 81 ADM/REG DATE : 10/27/16 MR#: [id number] REPORT SERV DATE: 10/29/16 DICTATED BY: AUGUSTO FOX DATE: 10/29/16 REPORT STATUS : Draft TRANSCRIBED BY: [employer] DATE: 10/29/16 Note Initiated On: 10/29/2016 7:44 AM Scope Withdrawal Time 0 hours 16 minutes 47 seconds [address] [place] [address]
--- NOTE | ~2016-10-27 | CN ---
Consultation Report [facility] [address] [place]. [address] NAME: LEONID SINCLAIR : 34 STATUS : ADM Estefany PAT#: [id number] AGE: 81 ADM/REG DATE : 10/27/16 MR#: [id number] REPORT SERV DATE: 10/28/16 DICTATED BY: QUETA SANCHEZ DATE: 10/28/16 REPORT STATUS : Draft TRANSCRIBED BY: MODL DATE: 10/28/16 GI CONSULTATION DATE OF CONSULTATION: 10/28/2016 REASON FOR CONSULTATION: Evaluation and management of anemia. HISTORY OF PRESENT ILLNESS: Ms. Leonid Sinclair is a very pleasant 81-year-old female patient who has been seen by our group in the past. Initially in 2015, when she underwent a PEG tube placement by Dr. Brooks secondary to oropharyngeal dysphagia, we saw her again this past 09/11/2016 for melena and acute blood loss anemia. Hemoglobin on admission was 6.8. She has a history of atrial fibrillation and was taking Xarelto, which she is still on. During that admission, she underwent upper endoscopy with Dr. Muñoz on 09/11/2016. Findings on that exam showed gastric antral vascular ectasia without bleeding that was treated by fulguration, otherwise normal exam. She was to hold her Xarelto for three days and follow up in four weeks. She did resume her Xarelto in three days, however, she has not been able to come in to the clinic for followup secondary to other health issues going on. She states that over the past few weeks, she has been having issues with increasing lower extremity edema. She was seen by [facility] and was placed on Lasix, which has improved somewhat her lower extremity edema. However, she has been since Wednesday having an increasing exertional shortness of breath. She states that on Wednesday, she began having a "sick stomach." Nausea and vomiting began on Wednesday x1. She describes her emesis is bilious-type material. No coffee grounds or bright red blood. Headache that has been ongoing for several days subsequently has resolved, status post packed red blood cells. She had left arm pain as well as chest discomfort yesterday which has all resolved, status post transfusion. CT angiogram of the chest was normal. EKG showed pacing. Chest x-ray with no acute cardiopulmonary process. Hemoglobin on admission was 8.0. When she was discharged in August after her stay, her hemoglobin was 9.4. In 09/24/2016, she had a hemoglobin checked at 9.5. Admission on 10/27/2016, had a hemoglobin of 8.0. She has had one unit of packed red blood cells with a hemoglobin of 9.2. She is on her second unit at this time. She is feeling better. She does report that she has been seeing black stools, but attributed this to iron intake; however, she does state over the last few weeks, it has been darker than the typical black stools that she sees. She has not had any abdominal discomfort. No fever or chills. No bright red blood per rectum. She has never had a colonoscopy. She has a history of H. pylori being found on EGD in 2016, which was treated in the outpatient setting with good results per the patient. I have discussed with her we will plan on EGD as well as colonoscopy on 10/29/2016 if cleared by Cardiology. Risks, benefits, alternatives, and complications were detailed for her to include, but not limited to risk of bleeding, perforation, infection, reaction to medication, as well as cardiac and pulmonary side effects. She is agreeable to proceed. PAST MEDICAL HISTORY: Positive for atrial fibrillation, on Xarelto; asthma; SVT; hypertension; AV seb ablation, pacemaker placement; postoperative hypoxia with intubation; PEG tube secondary to oropharyngeal dysphagia, since removed; pleural effusions; gastric antral vascular ectasias, treated with fulguration; and anemia, acute on chronic. Consultation Report [address] [address] NAME: LEONID SINCLAIR : 34 STATUS : ADM Estefany PAT#: [id number] AGE: 81 ADM/REG DATE : 10/27/16 MR#: [id number] REPORT SERV DATE: 10/28/16 DICTATED BY: QUETA SANCHEZ DATE: 10/28/16 REPORT STATUS : Draft TRANSCRIBED BY: NITO DATE: 10/28/16 SURGICAL HISTORY: Pacer, hysterectomy, and vein stripping. FAMILY HISTORY: Noncontributory from a GI standpoint. SOCIAL HISTORY: She lives independently with her . No alcohol, tobacco, or illicits. She does endorse occasional social alcohol, however. ALLERGIES: LISTED TO SOTALOL, FLECAINIDE, CARTIA, AND MULTAQ. HOME MEDICATIONS: Tylenol, Flovent, Flonase, Proventil, Singulair, Protonix, Xarelto, Requip, and Restoril. REVIEW OF SYSTEMS: A 10-point review of systems has been obtained with pertinent positives being addressed in the history of present illness. PHYSICAL EXAMINATION: VITAL SIGNS: Temperature 98.5, pulse 80, respirations 22, and blood pressure 132/62. NEURO: Reveals an alert female resting in bed with no focal deficits. GENERAL: Cooperative, in no apparent distress. Awake, alert, and oriented x3. HEAD, EARS, EYES, NOSE, AND THROAT: Anicteric. Pupils equal, round, and reactive to light accommodation. Normocephalic and atraumatic. NECK: No JVD. No palpable nodes. LUNGS: Clear anteriorly with normal respiratory effort exhibited. Equal expansion. CARDIOVASCULAR SYSTEM: Regular rate and rhythm. ABDOMEN: Soft, nondistended, nontender with active bowel sounds in all four quadrants. EXTREMITIES: Bilateral lower extremity edema. SKIN: Warm, dry, and intact. PERTINENT LABORATORY DATA: Sodium 135, potassium 4.5. BUN is 17, creatinine 1.17. White count 8.7, hemoglobin 9.2, hematocrit 30.5. INR of 1.7. BNP 521. Sedimentation rate 11, total bilirubin is 1.1, alkaline phosphatase 120, ALT 24, and AST 22. ASSESSMENT: 1. Symptomatic anemia of acute blood loss with a history of chronic iron deficiency anemia. 2. Lower extremity edema with elevated BNP, recently started on Lasix. 3. Headache, resolved with packed red blood cells. 4. History of atrial fibrillation, on Xarelto. 5. Chest pain, resolved after packed red blood cells. Negative troponin. 6. History of gastric arteriovenous malformation, status post ablation in 08/2016. 7. History of cardiomyopathy, she is status post pacemaker placement. PLAN: Consultation Report [address] [address] NAME: LEONID SINCLAIR : 34 STATUS : ADM Estefany PAT#: [id number] AGE: 81 ADM/REG DATE : 10/27/16 MR#: [id number] REPORT SERV DATE: 10/28/16 DICTATED BY: QUETA SANCHEZ DATE: 10/28/16 REPORT STATUS : Draft TRANSCRIBED BY: NITO DATE: 10/28/16 1. Clear liquid diet today from a GI standpoint if okay with Cardiology. 2. Bowel prep today for EGD and colonoscopy on 10/29/2016 if cleared by Cardiology and no further cardiac workup is planned. 3. We will continue to hold her Xarelto. 4. Monitor H and H. Other recommendations to follow endoscopy. BROOKS/NITO Queta DINAH [place] / [id number] CC: Toro Lutz M.D.
--- NOTE | ~2016-10-27 | CN ---
Consultation Report [facility] [address] [place]. [address] NAME: LEONID SINCLAIR : 34 STATUS : ADM Estefany PAT#: [id number] AGE: 81 ADM/REG DATE : 10/27/16 MR#: [id number] REPORT SERV DATE: 10/28/16 DICTATED BY: FELIPE ANDREW DATE: 10/28/16 REPORT STATUS : Draft TRANSCRIBED BY: MODL DATE: 10/28/16 CARDIOLOGY CONSULTATION DATE OF CONSULTATION: 10/28/2016 REASON FOR CONSULTATION: Chest pain. HISTORY OF PRESENT ILLNESS: Ms. Sinclair is an 81-year-old female, known to our group and followed by my partner, Dr. Fred Abraham, who has a cardiovascular history notable for atrial fibrillation status post AV seb ablation and pacemaker and managed with chronic anticoagulation with warfarin. She has had multiple admissions over the past year, most recently in late August when she had anemia and a GI bleed. She underwent endoscopy at that time and had gastric ectasias that were treated with ablated therapy. She subsequently resumed Xarelto. She, over the next few weeks, developed edema of lower extremities that was managed with loop diuretics but has been experiencing progressive fatigue as well. She actually saw Dr. Abraham last week and reports feeling fairly well at that visit. Subsequently she came home and experienced discomfort in her left arm that progressed to her left chest wall. She has a difficult time characterizing it but did not characterize pressure-like in quality. She eventually came to the ER due to this discomfort and it resolved after nitroglycerin and morphine. This has not recurred. She does have some back discomfort which she attributes to the mattress. Of note, she has no history of coronary artery disease and had a heart catheterization 05/2015 that demonstrated no CAD. She also had a CTA of the chest prior to admission that demonstrated no evidence of PE. PAST MEDICAL HISTORY: 1. Atrial fibrillation status post AV seb ablation and pacemaker placement, currently treated with Xarelto. 2. Valvular heart disease with mitral regurgitation, previously described as moderate on echo 09/2015. The patient also has moderate to severe TR and mild AR. 3. Cardiomyopathy. [id number] LV dysfunction. EF 40%. 4. Asthma. 5. Hypertension. 6. Anemia. 7. History of GI bleed. 8. History of respiratory failure. MEDICATIONS: Home medications reviewed, notable for Tylenol; Flovent; Flonase; Prinivil; Singulair; pantoprazole; Xarelto; Requip; and Restoril. ALLERGIES: SOTALOL, FLECAINIDE, DILTIAZEM, AND DRONEDARONE. FAMILY HISTORY: Noncontributory. SOCIAL HISTORY: No tobacco, alcohol, or illicits. Consultation Report [facility] [address] [place]. [address] NAME: LEONID SINCLAIR : 34 STATUS : ADM Estefany PAT#: [id number] AGE: 81 ADM/REG DATE : 10/27/16 MR#: [id number] REPORT SERV DATE: 10/28/16 DICTATED BY: FELIPE ANDREW DATE: 10/28/16 REPORT STATUS : Draft TRANSCRIBED BY: NITO DATE: 10/28/16 REVIEW OF SYSTEMS: Per HPI. Otherwise, negative. PHYSICAL EXAMINATION: VITAL SIGNS: Pulse 80, blood pressure 135/65, respiratory rate 16, and temperature 98.5. GENERAL: Appears comfortable. HEENT: Sclerae anicteric; mucous membranes moist. NECK: No JVD. Thyroid not tender or enlarged CARDIOVASCULAR: Regular rhythm with normal S1/S2. No murmurs, rubs, or gallop. PULMONARY: Lung workman CTA. ABDOMEN: Soft, nontender, no masses EXTREMITIES: Bilateral pitting edema is present. NEUROLOGIC: Grossly without deficits. LABORATORIES: All labs were reviewed, notable for creatinine 1.17, GFR 50, potassium 4.5, hemoglobin on admission 8.0, followup value of 8.2. Troponin less than 0.02 x 2. BNP 521. STUDIES: EKG underlying rhythm is atrial fibrillation. Ventricular pacing at rate of 80. CT of the chest demonstrates no evidence of dissection or aneurysm in the thoracic aorta. No evidence of PE. Mild segmental atelectasis and small pleural effusions. Echocardiogram from 10/16/2016, demonstrated an EF of 41% with moderate MR/TR. Biatrial enlargement. IMPRESSION/RECOMMENDATIONS: 1. Anemia likely secondary to chronic GI bleed. 2. Long-term anticoagulation with Xarelto. 3. Chest pain. Unclear etiology. 4. Valvular heart disease with moderate MR/TR. 5. Cardiomyopathy. 6. Lower extremity edema. Regarding the patient's anticoagulation, agree with holding Xarelto. As I understand it, there is a tentative plan to proceed with endoscopy for further evaluation of source of ongoing blood loss. From a cardiac standpoint, there is no direct contraindication proceeding with this. I do not think that her chest pain is secondary to unstable angina given the workup and clinical features. I do not feel that an ischemic evaluation is warranted at this time. Regarding edema, she is on Lasix which I would continue. Although the patient's blood pressure is well controlled, not low at this time, her history of hypotension that is documented in the office notes may prevent additional heart failure medications and defer any additional heart failure regimen changes to Dr. Abraham. Thank you for the consultation. We will follow with you. KENNY/NITO Consultation Report [address] [place]. [address] NAME: LEONID SINCLAIR : 34 STATUS : ADM Estefany PAT#: [id number] AGE: 81 ADM/REG DATE : 10/27/16 MR#: [id number] REPORT SERV DATE: 10/28/16 DICTATED BY: FELIPE ANDREW DATE: 10/28/16 REPORT STATUS : Draft TRANSCRIBED BY: NITO DATE: 10/28/16 Felipe Andrew MD / [id number] CC: Toro Lutz M.D.
--- NOTE | ~2016-10-27 | HP ---
History And Physical [address] [id number] [facility] [place]. [address] NAME: LEONID UNDERWOOD : 33 STATUS : ADM Estefany PAT#: [id number] AGE: 81 ADM/REG DATE : 10/27/16 MR#: [id number] REPORT SERV DATE: 10/27/16 DICTATED BY: KSENIA LYONS DATE: 10/27/16 REPORT STATUS : Draft TRANSCRIBED BY: MODL DATE: 10/27/16 DATE OF ADMISSION: 10/27/2016 CHIEF COMPLAINT: An 81-year-old female presenting with headache, chest pain, and evidence of acute blood loss anemia. HISTORY OF PRESENTING ILLNESS: The patient's history was obtained through an interview with the patient, coupled with review of [facility] medical records. The patient was hospitalized in 08/2016 with acute blood loss anemia, on chronic Xarelto. Her Xarelto was stopped. She had an upper endoscopy under the care of Dr. Muñoz that showed gastric vascular ectasias and underwent ablation of these lesions with presumptive resolution of bleeding. She was discharged home in stable condition in August and told to restart her Xarelto on 09/15/2016 (three days after discharge from the hospital). She has been doing well. She has been on iron supplements these last few months and she notes though that her stool has been very dark, but she attributes this to the iron supplements, although it is a similar black stool from when she was bleeding from gastric vascular ectasias back in August. There has been no bright blood per rectum. But it has just been in the last several days that she has been "not feeling well." She describes a poor appetite, but no nausea or vomiting. Then, she has developed a headache behind her left ear that radiates up to the latter-day and the left forehead. Is described as "tremendous" in severity. She describes a chest discomfort that she attributes to "my heart," also an aching quality, 6/10 severity just in the last 24 hours. She has chronic shortness of breath and nonproductive cough, unchanged from baseline. Her headache is completely resolved with rest now. There is no lightheadedness. No confusion. She has been struggling with lower extremity edema over the last two months and been on intermittent p.r.n. Lasix, sometimes two or three days at a time. REVIEW OF SYSTEMS: Otherwise, a 14-point review of systems was obtained and was negative. PAST MEDICAL HISTORY: 1. Atrial fibrillation, on chronic Xarelto, followed by Dr. Abraham. 2. Systolic congestive heart failure. Ejection fraction 40%. 3. GI bleed with gastric vascular ectasia and lesion ablation in 08/[address] Muñoz. 4. Pacemaker. History And Physical [address] [address] NAME: LEONID UNDERWOOD : 33 STATUS : ADM Estefany PAT#: [id number] AGE: 81 ADM/REG DATE : 10/27/16 MR#: [id number] REPORT SERV DATE: 10/27/16 DICTATED BY: KSENIA LYONS DATE: 10/27/16 REPORT STATUS : Draft TRANSCRIBED BY: NITO DATE: 10/27/16 5. Restless legs syndrome. PAST SURGICAL HISTORY: 1. Pacemaker. 2. Hysterectomy. 3. Vein stripping. ALLERGIES: SOTALOL, FLECAINIDE, CALCIUM CHANNEL BLOCKERS, DRONEDARONE. SOCIAL HISTORY: The patient has lived most of her life in [place], [place], and [place], but now lives in [place], [place], with her of 62 years. They have three children, nine grandchildren, and five great-grandchildren. She drinks alcohol socially, but rarely. No tobacco abuse history. FAMILY HISTORY: Father at 67 years of age of complications of obesity. Mother's health has really been unknown to her. CURRENT MEDICATIONS: Include Tylenol as needed, Flovent, Flonase, lisinopril 2.5 mg p.o. daily, Singulair 10 mg p.o. daily, Protonix 40 mg p.o. b.i.d., Xarelto 20 mg p.o. daily, Requip 0.5 mg p.o. q.h.s., Restoril 15 mg at bedtime. PHYSICAL EXAMINATION: VITAL SIGNS: Temperature 98.3, pulse 81, blood pressure 173/62, respiratory rate 16, O2 saturation 100% on room air. GENERAL: A pleasant, cooperative female, in no evidence of acute distress. HEENT: Pupils equal, round, and reactive to light. The patient does have conjunctival pallor, but no scleral icterus. Nares are patent. Oropharynx is clear of obstruction. Moist mucous membranes. No intraoral lesions. NECK: Trachea midline. No thyromegaly. LYMPH: No cervical lymphadenopathy. No supraclavicular lymphadenopathy. RESPIRATORY: Clear to auscultation at bases. No wheezes, rales, or rhonchi. Normal respiratory effort. CARDIOVASCULAR: Regular rate and rhythm. Paced on the monitor. No murmurs, rubs, or gallops. No lower extremity edema is appreciated. ABDOMEN: Completely soft, nontender, nondistended. Normal bowel sounds auscultated throughout. No hepatosplenomegaly. DERMATOLOGICAL: Warm and dry extremities. No pallor, no cyanosis. PSYCHIATRIC: Normal affect. Good mood. Alert and oriented x3. LABORATORY DATA: White blood cell count 7.6, hemoglobin 8.0, hematocrit 26.5, platelets 252. Sodium 134, potassium 4.5, chloride 107, bicarb 25, BUN 19, creatinine 1.21, glucose 105. Troponin negative. INR 2.2. STUDIES: 1. Chest x-ray by my own evaluation shows no acute cardiopulmonary process. 2. EKG by my own evaluation shows ventricular pacing. 3. CT angiogram of the chest was read as showing no abnormalities of the thoracic or History And Physical [address] [address] NAME: LEONID UNDERWOOD : 33 STATUS : ADM Estefany PAT#: [id number] AGE: 81 ADM/REG DATE : 10/27/16 MR#: [id number] REPORT SERV DATE: 10/27/16 DICTATED BY: KSENIA LYONS DATE: 10/27/16 REPORT STATUS : Draft TRANSCRIBED BY: NITO DATE: 10/27/16 abdominal aorta. ASSESSMENT AND PLAN: 1. Acute blood loss anemia, symptomatic. We will transfuse blood. Consult Dr. Muñoz, clinical applications specialist. Hold Xarelto. History of gastric vascular ectasia. 2. Chest pain. Negative CT angiogram of the thoracic and abdominal aorta. Consult Dr. Abraham, windows server administrator. 3. Headache. Check ESR. 4. Lymphedema. Check brain natriuretic peptide. Place on Lasix. History of systolic congestive heart failure. Ejection fraction 40%. 5. Chronic atrial fibrillation. Check telemetry. Holding Xarelto for anemia. KRISTA/MODL Ksenia Lyons M.D. / [id number] CC: Toro Gaxiola M.D. William M. Cooney, MD Ted Scoggins, M.D.
[~2016-10-27 18:02] MED LIST changes: +FISH-EPA1000 MG PO; +MULTIVIT/MIN PO; +PROTONIX PO; +REQUIP5 PO; +REST15 PO
[2016-10-27 18:18] LABS: BASOPHILS 0.5 %; BASOPHILS ABSOLUTE 0.04 10/3/uL (0.0-0.16); EOSINOPHILS 0.7 %; EOSINOPHILS ABSOLUTE 0.05 10/3/uL (0.0-0.53); IMMATURE GRANULOCYTES 0.3 %; IMMATURE GRANULOCYTES ABSOLUTE 0.02 10/3/uL (0.0-0.11); LYMPHOCYTES 16.1 %; LYMPHOCYTES ABSOLUTE 1.22 10/3/uL (0.67-4.30); MEAN CORPUS HGB CONC 30.2 g/dL (32.0-36.0); MEAN CORPUSCULAR HEMOGLOB 23.2 pg (26.0-34.0); MONOCYTES 12.6 %; MONOCYTES ABSOLUTE 0.96 10/3/uL (0.21-1.20); NEUTROPHILS 69.8 %; NEUTROPHILS ABSOLUTE 5.31 10/3/uL (2.02-8.40); PLATELET COUNT 252 10/3/uL (150-400); RBC DISTRIBUTION WIDTH 19.7 % (12.0-16.0); RED CELL COUNT 3.45 10/6/uL (4.0-5.6)
[2016-10-27 18:19] LABS: ER CBC TAT 0 Hrs 07 Mins; HEMATOCRIT 26.5 % (36.0-48.0); MANUAL DIFF NO %; MEAN CORPUSCULAR VOLUME 76.8 fL (80-100); WHITE BLOOD CELLS 7.6 10/3/uL (4.5-10.5)
[2016-10-27 18:28] LABS: INTERNATIONAL NORMAL RATI 2.2 UNITS (-); PARTIAL THROMBO TIME 37.9 SEC (22.5-37.2)
[2016-10-27 18:29] LABS: PROTIME (NOT ORD) 24.5 SEC (12.0-14.5)
[2016-10-27] MEDS ORDERED: SINGULAIR1 PO (18:36)
[2016-10-27] MEDS ORDERED: FLOVENT110 INH (18:37)
[2016-10-27] MEDS ORDERED: T PO (18:40)
[2016-10-27] MEDS ORDERED: FLONASE NAS (18:42)
[2016-10-27 19:12] LABS: CALCIUM, SERUM 8.9 MG/DL (8.5-10.4); CHEST PAIN PROFILE TAT 1 Hrs 00 Mins; CHLORIDE, SERUM 107 MMOL/L (96-112); CREATININE 1.21 MG/DL (0.55-1.02); GFR AFRICAN AMERICAN 48 ML/MIN (>=60); GFR NON AFRICAN AMERICAN 42 ML/MIN (>=60); GLUCOSE, SERUM 105 MG/DL (60-99); POTASSIUM, SERUM 4.5 MMOL/L (3.5-5.3); SODIUM, SERUM 134 MMOL/L (135-148); TROPONIN I <0.02 NG/ML (<0.05)
[2016-10-27 19:13] LABS: BUN (BLOOD UREA NITROGEN) 19 MG/DL (6-23); CO2 (CARBON DIOXIDE) 25 MMOL/L (24-34)
[2016-10-28 05:33] LABS: BASOPHILS 0.2 %; BASOPHILS ABSOLUTE 0.02 10/3/uL (0.0-0.16); EOSINOPHILS 0 %; HEMATOCRIT 30.5 % (36.0-48.0); HEMOGLOBIN 9.2 g/dL (12.0-16.0); IMMATURE GRANULOCYTES 0.2 %; IMMATURE GRANULOCYTES ABSOLUTE 0.02 10/3/uL (0.0-0.11); LYMPHOCYTES ABSOLUTE 1.39 10/3/uL (0.67-4.30); MANUAL DIFF NO %; MEAN CORPUS HGB CONC 30.2 g/dL (32.0-36.0); MEAN CORPUSCULAR HEMOGLOB 23.5 pg (26.0-34.0); MEAN CORPUSCULAR VOLUME 77.8 fL (80-100); MEAN PLATELET VOLUME 10.3 fL (9.2-13.0); MONOCYTES 14.8 %; MONOCYTES ABSOLUTE 1.28 10/3/uL (0.21-1.20); NEUTROPHILS 68.8 %; NEUTROPHILS ABSOLUTE 5.96 10/3/uL (2.02-8.40); PLATELET COUNT 244 10/3/uL (150-400); RED CELL COUNT 3.92 10/6/uL (4.0-5.6); WHITE BLOOD CELLS 8.7 10/3/uL (4.5-10.5)
[2016-10-28 05:42] LABS: INTERNATIONAL NORMAL RATI 1.7 UNITS (-)
[2016-10-28 05:43] LABS: PROTIME (NOT ORD) 19.6 SEC (12.0-14.5)
[2016-10-28 05:57] LABS: ALBUMIN 3.5 G/DL (3.5-5.0); ALKALINE PHOSPHATASE 120 U/L (45-117); BUN (BLOOD UREA NITROGEN) 17 MG/DL (6-23); CALCIUM, SERUM 8.7 MG/DL (8.5-10.4); CHLORIDE, SERUM 105 MMOL/L (96-112); CO2 (CARBON DIOXIDE) 26 MMOL/L (24-34); CREATININE 1.17 MG/DL (0.55-1.02); GFR AFRICAN AMERICAN 50 ML/MIN (>=60); GFR NON AFRICAN AMERICAN 43 ML/MIN (>=60); GLUCOSE, SERUM 123 MG/DL (60-99); POTASSIUM, SERUM 4.5 MMOL/L (3.5-5.3); SGOT(AST) 22 U/L (5-40); SGPT(ALT) 24 U/L (5-65); SODIUM, SERUM 135 MMOL/L (135-148); TOTAL BILIRUBIN 1.1 MG/DL (0-1.2); TROPONIN I <0.02 NG/ML (<0.05)
[2016-10-28 06:01] LABS: GLOBULIN 3.5 G/DL (2.5-4.1)
[2016-10-28 06:17] LABS: SED RATE 11 MM/HR (0-20)
[2016-10-29 05:06] LABS: INTERNATIONAL NORMAL RATI 1.3 UNITS (-)
[2016-10-29 05:07] LABS: PROTIME (NOT ORD) 16.1 SEC (12.0-14.5)
[2016-10-29 05:09] LABS: BASOPHILS 0.3 %; BASOPHILS ABSOLUTE 0.02 10/3/uL (0.0-0.16); EOSINOPHILS 0.7 %; EOSINOPHILS ABSOLUTE 0.04 10/3/uL (0.0-0.53); HEMATOCRIT 29.7 % (36.0-48.0); HEMOGLOBIN 9.4 g/dL (12.0-16.0); IMMATURE GRANULOCYTES 0.2 %; IMMATURE GRANULOCYTES ABSOLUTE 0.01 10/3/uL (0.0-0.11); LYMPHOCYTES 25.6 %; LYMPHOCYTES ABSOLUTE 1.55 10/3/uL (0.67-4.30); MEAN CORPUS HGB CONC 31.6 g/dL (32.0-36.0); MEAN CORPUSCULAR HEMOGLOB 24.9 pg (26.0-34.0); MEAN CORPUSCULAR VOLUME 78.6 fL (80-100); MEAN PLATELET VOLUME 10.2 fL (9.2-13.0); MONOCYTES 15.9 %; MONOCYTES ABSOLUTE 0.96 10/3/uL (0.21-1.20); NEUTROPHILS 57.3 %; NEUTROPHILS ABSOLUTE 3.47 10/3/uL (2.02-8.40); PLATELET COUNT 208 10/3/uL (150-400); RBC DISTRIBUTION WIDTH 19.3 % (12.0-16.0); RED CELL COUNT 3.78 10/6/uL (4.0-5.6); WHITE BLOOD CELLS 6.1 10/3/uL (4.5-10.5)
[2016-10-29 05:11] LABS: MANUAL DIFF NO %
[2016-10-29 05:16] LABS: BUN (BLOOD UREA NITROGEN) 15 MG/DL (6-23); CHLORIDE, SERUM 104 MMOL/L (96-112); CO2 (CARBON DIOXIDE) 28 MMOL/L (24-34); CREATININE 1.01 MG/DL (0.55-1.02); GFR AFRICAN AMERICAN 60 ML/MIN (>=60); GFR NON AFRICAN AMERICAN 52 ML/MIN (>=60); SODIUM, SERUM 141 MMOL/L (135-148)
[2016-10-29 05:17] LABS: GLUCOSE, SERUM 89 MG/DL (60-99); POTASSIUM, SERUM 3.2 MMOL/L (3.5-5.3)
[2016-10-29 16:05] LABS: HEMATOCRIT 32.8 % (36.0-48.0)
[2016-10-30 06:20] LABS: HEMATOCRIT 30.8 % (36.0-48.0); HEMOGLOBIN 9.5 g/dL (12.0-16.0)
[2016-10-30] MEDS ORDERED: L20 PO (09:59)
== END 2016-10-30 13:00 | disposition home or self-care (01) | DRG 378 ==
LOC: ER 18:02 → CDU1 22:11 → 7NO 10-29 12:48
PROVIDERS: Hospitalist; Internal Medicine; Internal Medicine Gastroenterology; Nurse Practitioner Family
PROC: 30233N1 Transfusion of Nonautologous Red Blood Cells into Peripheral Vein, Percutaneous Approach (ICD-10-PCS; 2016-10-28)
PROC: 0DBL8ZX Excision of Transverse Colon, Via Natural or Artificial Opening Endoscopic, Diagnostic (ICD-10-PCS; 2016-10-29)
PROC: 0D568ZZ Destruction of Stomach, Via Natural or Artificial Opening Endoscopic (ICD-10-PCS; principal; 2016-10-29 07:00)
PROC: 0DBK8ZX Excision of Ascending Colon, Via Natural or Artificial Opening Endoscopic, Diagnostic (ICD-10-PCS; 2016-10-29 07:00)
PROC: 0DBN8ZX Excision of Sigmoid Colon, Via Natural or Artificial Opening Endoscopic, Diagnostic (ICD-10-PCS; 2016-10-29 07:00)
DX: K31.811 Angiodysplasia of stomach and duodenum with bleeding (principal); D62 Acute posthemorrhagic anemia; I42.9 Cardiomyopathy, unspecified; I50.22 Chronic systolic (congestive) heart failure; I08.3 Combined rheumatic disorders of mitral, aortic and tricuspid valves; I11.9 Hypertensive heart disease without heart failure; I89.0 Lymphedema, not elsewhere classified; R51 Headache; K57.30 Diverticulosis of large intestine without perforation or abscess without bleeding; D12.7 Benign neoplasm of rectosigmoid junction; D12.3 Benign neoplasm of transverse colon; D12.2 Benign neoplasm of ascending colon; I48.2 Chronic atrial fibrillation; J45.909 Unspecified asthma, uncomplicated; G47.33 Obstructive sleep apnea (adult) (pediatric); I73.00 Raynaud's syndrome without gangrene; F41.9 Anxiety disorder, unspecified; R13.12 Dysphagia, oropharyngeal phase; Z95.0 Presence of cardiac pacemaker; Z90.710 Acquired absence of both cervix and uterus; Z79.01 Long term (current) use of anticoagulants; Z88.8 Allergy status to other drugs, medicaments and biological substances
CPT/HCPCS: 36415; 71010; 71275; 74175; 80048; 80053; 82962; 83735; 83880; 84132; 84443; 84484; 85014; 85018; 85025; 85610; 85652; 85730; 86850; 86900; 86901; 86920; 88305; 93005; 93922; 94640; 96374; 96375; 99285; A9270-GY; C9113; G0463; J1940; J2405; P9016; Q9967